=== PATIENT | female | born 1990 | race Two or more races ===

== ENCOUNTER 2018-10-16 17:57 | Emergency (ER) | payer MEDICAID ==
[~2018-10-16] VITALS: Ht 162.6 cm; Wt 68.0 kg
[2018-10-16] MEDS ORDERED: NKM (18:10)
--- NOTE | 2018-10-16 18:21 | NUR ---
ED Nurse Note: PT WALKED IN TO ER TODAY FROM HOME. AOX4. PT C/O LOWER ABDOMINAL PAIN, 10/10 RADIATING TO MEDIAL LOWER BACK AND BUTTOCKS X 3 DAYS AGO. PT DENIES PAINFUL URINATION OR DIFFICULTY URINATING BUT DOES C/O INCREASE IN URINARY URGENCY. PT DENIES INCREASE IN URINARY FREQUENCY. PT UNSURE IF SHE NOTICED BLOOD IN URINE DUE TO BEING ON MENSTRUAL CYCLE AT THIS TIME.
[2018-10-16 18:23] VITALS: BP 114/76
[2018-10-16] MEDS ORDERED: Morphine Sulfate 4mg/ml Inj (IV USE ONLY) IVP ONE (18:30)
--- NOTE | 2018-10-16 18:44 | NUR ---
ED Nurse Note: PT TO ULTRASOUND VIA WHEELCHAIR.
[2018-10-16 19:03] LABS: ANION GAP 11 mmol/L (5-15); BLOOD UREA NITROGEN 4 mg/dL (7-18); CALCIUM 9.3 MG/DL (8.5-10.1); CARBON DIOXIDE 26 MMOL/L (21-32); CHLORIDE 106 MMOL/L (98-107); CREATININE 0.8 MG/DL (0.55-1.30); POTASSIUM 3.7 MMOL/L (3.5-5.1); SODIUM 143 MMOL/L (136-145)
--- NOTE | 2018-10-16 19:06 | NUR ---
HAND-OFF: REPORT GIVEN TO KATHY GARZA.
[2018-10-16 19:08] LABS: ALANINE AMINOTRANSFERASE 15 U/L (12-78); ALBUMIN 3.6 G/DL (3.4-5.0); ALBUMIN/GLOBULIN RATIO 0.8 (1.0-2.7); ALKALINE PHOSPHATASE 73 U/L (46-116); ASPARTATE AMINO TRANSFERASE 10 U/L (15-37); BILIRUBIN,TOTAL 0.6 MG/DL (0.2-1.0)
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
[2018-10-16 19:26] LABS: BASOPHILS % (AUTO) 0.5 % (0.0-2.0); EOSINOPHILS % (AUTO) 0.2 % (0.0-3.0); HEMATOCRIT 37.6 % (37.0-47.0); HEMOGLOBIN 13.2 G/DL (12.0-16.0); LYMPHOCYTES % (AUTO) 11.4 % (20.0-45.0); MEAN CORPUSCULAR VOLUME 81 FL (80-99); MONOCYTES % (AUTO) 8.8 % (1.0-10.0); NEUTROPHILS % (AUTO) 79.2 % (45.0-75.0); PLATELET COUNT 306 K/UL (150-450); RED BLOOD COUNT 4.64 M/UL (4.20-5.40); RED CELL DISTRIBUTION WIDTH 10.6 % (11.6-14.8)
--- NOTE | 2018-10-16 20:20 | Diagnostic Imaging Report ---
EXAM: CT Abdomen and Pelvis Without Intravenous Contrast CLINICAL HISTORY: ABD PAIN TECHNIQUE: Axial computed tomography images of the abdomen and pelvis without intravenous contrast. CTDI is 13.45 mGy and DLP is 714 mGy-cm. One or more of the following dose reduction techniques were used: automated exposure control, adjustment of the mA and/or kV according to patient size, use of iterative reconstruction technique. COMPARISON: No relevant prior studies available. FINDINGS: Lung bases demonstrate no acute infiltrate. The liver, biliary tree, pancreas, spleen, kidneys, and adrenal glands are within normal limits for noncontrast technique. 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 Correlate for history of Crohn disease. No bowel obstruction. Unremarkable appendix. Intrauterine device. No abdominal aortic aneurysm. No fracture. 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 Correlate for history of Crohn disease.
--- NOTE | 2018-10-16 20:38 | Diagnostic Imaging Report ---
EXAM: US Pelvis Complete, Transabdominal and endovaginal CLINICAL HISTORY: ABD PAIN TECHNIQUE: Real-time transabdominal and endovaginal pelvic ultrasound (complete) with image documentation. COMPARISON: No relevant prior studies available. FINDINGS: Uterus/cervix: Normal in size, 7 x 5.3 x 4.4 cm. Normal endometrial stripe thickness at 6 mm. Intrauterine device No myometrial mass. Right ovary: Normal in size, 3.4 x 2.3 x 1.1 cm. No mass. Normal blood flow. Left ovary: Normal in size, 3.3 x 2.7 x 1.2 cm. No mass. Normal blood flow. Free fluid: Trace free fluid in the cul-de-sac may be physiologic. IMPRESSION: Appropriately positioned IUD. Unremarkable ovaries. Trace free fluid may be physiologic.
[2018-10-16 21:13] LABS: APPEARANCE,URINE SLIGHTLY CLOUDY; BILIRUBIN, URINE NEGATIVE (NEGATIVE); COLOR,URINE PALE YELLOW; GLUCOSE, URINE (UA) NEGATIVE (NEGATIVE); KETONES,URINE NEGATIVE (NEGATIVE); LEUKOCYTE ESTERASE ,URINE NEGATIVE (NEGATIVE); NITRITE,URINE NEGATIVE (NEGATIVE); PH,URINE 7 (4.5-8.0); PROTEIN,URINE NEGATIVE (NEGATIVE); UROBILINOGEN,URINE NORMAL MG/DL (0.0-1.0)
--- NOTE | 2018-10-16 21:26 | NUR ---
ED Nurse Note: Pt resting in bed high fowlers, IV fluids infusing. Pt tolerating well, urine sample sent, no further orders at this time, will continue to monitor.
[2018-10-16] MEDS ORDERED: ANUSOL-HC30 GM RC (21:32)
[2018-10-16] MEDS ORDERED: COLACE100 MG ORAL (21:32)
[2018-10-16 21:50] VITALS: BP 114/76
--- NOTE | 2018-10-16 21:50 | NUR ---
ER DISCHARGE NOTE: Patient is cleared to be discharged per ERMD, pt is aox4, on room air, with stable vital signs. pt was given dc and prescription instructions, pt was able to verbalize understanding, pt id band and iv site removed without complications. pt is able to ambulate with steady gait. pt took all belongings.
== END 2018-10-16 21:50 | disposition home or self-care (01) ==
LOC: EMR 19:26
DX: K59.00 Constipation, unspecified (principal); R10.9 Unspecified abdominal pain
CPT/HCPCS: 36415; 74176; 76830; 76856; 80053; 81003; 84702; 85025; 96361; 96374; 96375; 99284; J2270; J2405